=== PATIENT | male | born 1965 | race Caucasian/White ===

== ENCOUNTER 2018-06-21 10:49 | Inpatient (IN) | payer OTHER ==
[~2018-06-21] VITALS: Ht 177.8 cm; Wt 102.1 kg
[2018-06-21 11:21] LABS: BASOPHILS % 0.6 % (0.0-2.0); EOSINOPHILS % 1.5 % (0.0-5.0); HEMATOCRIT. 43.2 % (42.0-52.0); HEMOGLOBIN. 14.7 g/dL (14.0-18.0); LYMPHOCYTES % 26.8 % (20.0-50.0); MEAN CORPUSCULAR HEMOGLOBIN 29.1 pg (28.0-32.0); MEAN CORPUSCULAR VOLUME 85.4 fL (80.0-94.0); MEAN PLATELET VOLUME 8.3 fl (7.4-10.4); MONOCYTES % 7.1 % (2.0-8.0); PLATELET 201 x1000/uL (130-400); RED BLOOD CELL COUNT 5.06 mill/uL (4.7-6.1); RED CELL DISTRIBUTION WIDTH 14.5 % (11.6-14.6)
[2018-06-21 11:32] LABS: CHLORIDE 104 mEq/L (98-107); ETHANOL BLOOD < 10 mg/dL
[2018-06-21 11:36] LABS: LDL CHOLESTEROL 74 mg/dL (5-100)
[2018-06-21 12:11] LABS: AMMONIA 41 uMol/L (<32)
[2018-06-21] MEDS ORDERED: ASPIRIN 81MG TABLET PO NR (13:42)
[2018-06-21] MEDS ORDERED: SODIUM CHLORIDE 0.9% 1,000 ML IV NR (13:43)
[2018-06-21] MEDS ORDERED: LACTULOSE 20G/30ML UDC PO NR (13:43)
[2018-06-21 16:00] VITALS: BP 118/82
[2018-06-21 17:13] VITALS: BP 118/82
[2018-06-21] MEDS ORDERED: LITH300C3 PO (17:31)
[2018-06-21] MEDS ORDERED: ATOR40TA70 PO (17:31)
[2018-06-21] MEDS ORDERED: METF-815 MT (17:31)
[2018-06-21] MEDS ORDERED: EZET10TA26 PO (17:31)
[2018-06-21] MEDS ORDERED: SERT-112 PO (17:31)
[2018-06-21] MEDS ORDERED: LISI-604 PO (17:31)
[2018-06-21] MEDS ORDERED: ALPR-394 PO (17:31)
[2018-06-21] MEDS ORDERED: ASPI-1158 PO (17:31)
[2018-06-21] MEDS ORDERED: SERT-112 MT (17:31)
[2018-06-21] MEDS ORDERED: MULT1TAB55 PO (17:31)
[2018-06-21] MEDS ORDERED: OMEP20CA10 PO (17:31)
[2018-06-21] MEDS ORDERED: TRAZ-212 PO (17:31)
[2018-06-21] MEDS ORDERED: GABA-290 PO (17:31)
[2018-06-21] MEDS ORDERED: NPH,100I SQ (17:31)
[2018-06-21] MEDS ORDERED: IBUP-2029 PO (17:31)
[2018-06-21] MEDS ORDERED: GABA-290 MT (17:31)
[2018-06-21] MEDS ORDERED: HYDR50SY PO (17:31)
[2018-06-21] MEDS ORDERED: INSU100I28 SQ (17:31)
[2018-06-21] MEDS ORDERED: IBUPROFEN 600MG TABLET PO PRN (17:45)
[2018-06-21] MEDS ORDERED: ACETAMINOPHEN 325MG TABLET PO PRN (17:45)
[2018-06-21] MEDS ORDERED: TEMAZEPAM 15MG CAPSULE PO PRN (17:45)
[2018-06-21] MEDS ORDERED: ONDANSETRON HCL 4MG/2ML INJ IV PRN (17:45)
[2018-06-21] MEDS ORDERED: GUAIFENESIN 200MG/10ML SUGAR FREE UDC PO PRN (17:45)
[2018-06-21] MEDS ORDERED: CLONIDINE 0.1MG TABLET PO PRN (17:45)
[2018-06-21] MEDS ORDERED: ENOXAPARIN 40MG/0.4ML SYR SUBCUT SCH (17:45)
[2018-06-21] MEDS ORDERED: MAGNESIUM HYDROXIDE 400MG/5ML 30ML UDC PO PRN (17:45)
[2018-06-21] MEDS ORDERED: MAGNESIUM/ALUMINUM HYDROXIDE/SIMETHICONE 30ML UDC PO PRN (17:45)
[2018-06-21 19:04] LABS: CLARITY URINE CLEAR (CLEAR); COLOR URINE YELLOW (YELLOW); KETONES URINE NEGATIVE (NEGATIVE); LEUKOCYTE ESTERASE URINE TRACE (NEGATIVE); NITRITE URINE NEGATIVE (NEGATIVE); OCCULT BLOOD URINE NEGATIVE (NEGATIVE); PH URINE 6.5 (4.5-8.0); PROTEIN URINE NEGATIVE (NEGATIVE); SPECIFIC GRAVITY URINE 1.017 (1.005-1.030); UROBILINOGEN URINE 0.2 E.U./dL (0.2-1.0)
[2018-06-21 19:50] LABS: *AMPHETAMINES SCREEN URINE NEGATIVE (NEGATIVE); *BARBITURATES SCREEN URINE NEGATIVE (NEGATIVE); *BENZODIAZEPINES SCREEN URINE PRESUMTIVE POSITIVE (NEGATIVE); *COCAINE SCREEN URINE NEGATIVE (NEGATIVE); CANNABINOID URINE SCREEN NEGATIVE (NEGATIVE); METHADONE URINE SCREEN NEGATIVE (NEGATIVE); OPIATES URINE SCREEN NEGATIVE (NEGATIVE); PHENCYCLIDINE URINE SCREEN NEGATIVE (NEGATIVE)
[2018-06-21 20:00] VITALS: BP 114/81
[2018-06-21] MEDS ORDERED: PNEUMOCOCCAL 23-VAL P-SAC VAC 0.5 ML IM ONE (20:00)
[2018-06-21] MEDS ORDERED: INFLUENZA VIRUS VACCINE(AFLURIA) 0.5ML SYR IM ONE (20:00)
[2018-06-21] MEDS: ENOXAPARIN 30MG/0.3ML SYR SUBCUT SCH (21:47)
[2018-06-21] MEDS ORDERED: INSULIN GLARGINE UD 100 UNITS/ML SYR SUBCUT SCH (22:00)
[2018-06-21] MEDS ORDERED: DEXTROSE 50% WATER 50ML SYRINGE IV PRN (22:15)
[2018-06-22] VITALS: BP 106/73
[2018-06-22 04:00] VITALS: BP 108/73
[2018-06-22] MEDS: BLOOD SUGAR DIAGNOSTIC STRIP TEST SCH ×2 (06:22→12:20)
[2018-06-22] MEDS: SODIUM CHLORIDE 0.9% INJ 3ML FLUSH IVF SCH ×2 (06:22→14:00)
[2018-06-22 08:00] VITALS: BP 120/84
[2018-06-22] MEDS: INSULIN LISPRO 100 UNITS/ML SUBCUT SCH ×2 (09:00→14:08)
[2018-06-22] MEDS ORDERED: ASPIRIN 81MG EC TABLET PO SCH (09:00)
[2018-06-22] MEDS ORDERED: LISINOPRIL 5MG TABLET PO SCH (09:00)
[2018-06-22] MEDS: ENOXAPARIN 30MG/0.3ML SYR SUBCUT SCH (09:02)
[2018-06-22 12:00] VITALS: BP 138/94
[2018-06-22 14:49] VITALS: BP 138/94
[2018-06-22 14:53] VITALS: BP 138/94
== END 2018-06-22 15:26 | disposition home or self-care (01) | DRG 52 ==
LOC: ER 11:14 → 6EST 11:53 → ENRESERV 12:08
PROVIDERS: ADMIT Internal Medicine; ATTEND Internal Medicine
DX: G93.41 Metabolic encephalopathy (principal); K74.60 Unspecified cirrhosis of liver; E11.9 Type 2 diabetes mellitus without complications; F17.200 Nicotine dependence, unspecified, uncomplicated; N40.0 Benign prostatic hyperplasia without lower urinary tract symptoms; I10 Essential (primary) hypertension; I25.10 Atherosclerotic heart disease of native coronary artery without angina pectoris; Z95.5 Presence of coronary angioplasty implant and graft; Z79.899 Other long term (current) drug therapy; Z83.3 Family history of diabetes mellitus
CPT/HCPCS: 36415; 70551; 71045; 80305; 82140; 82962; 83036; 83721; 84484; 93005; 93880; 99285; G0482; J1650; J1815